=== PATIENT | female | born 1970 | race Asian ===

== ENCOUNTER 2017-05-19 06:08 | Day surgery (SDC) | payer OTHER ==
[2017-05-17 16:10] VITALS: BMI 25.1
[2017-05-19 09:15] VITALS: BP 117/71; PULSE 64; TEMP 97.5
[2017-05-19] MEDS ORDERED: PROPOFOL 20 ML ONE (09:24)
[2017-05-19] MEDS ORDERED: KETOROLAC TROMETHAMINE 30 MG/1 ML VIAL ONE (09:24)
[2017-05-19] MEDS ORDERED: DEXAMETHASONE SOD PHOSPHATE 4 MG/1 ML VIAL ONE (09:24)
[2017-05-19] MEDS ORDERED: MIDAZOLAM HCL 2 MG/2 ML SINGLE DOSE VIAL ONE (09:25)
== END 2017-05-19 12:30 | disposition home or self-care (01) ==
LOC: JASU-SURG 06:08
PROVIDERS: ATTEND Obstetrics & Gynecology
PROC: 0UDB7ZZ Extraction of Endometrium, Via Natural or Artificial Opening (ICD-10-PCS; principal; 2017-05-19)
DX: Z53.8 Procedure and treatment not carried out for other reasons (principal)